=== PATIENT | female | born 1990 | race Caucasian/White ===

== ENCOUNTER 2021-11-16 15:20 | Emergency (ER) | payer SELFPAY ==
[2021-11-16 15:56] LABS: Bilirubin Negative (Negative); Blood, Urine Small (Negative); Clarity Cloudy (Clear); Glucose, Urine (Dipstick) Negative (Negative); Ketone, Urine Negative (Negative); Leukocyte Trace (Negative); Nitrite Negative (Negative); Protein, Urine (Dipstick) Negative (Neg-Trace); Urobilinogen 0.2 mg/dL (Less than 2); pH, Urine 5.5 (5.0-9.0)
[2021-11-16 16:02] LABS: Pregnancy Test - Urine (BHCG) Negative (Negative); Pregu Control Background? CLEAR/WHITE (CLR/WHITE); Pregu Control Bar Appear? YES (CONTROL BAR); Specific Gravity 1.033 (1.002-1.036)
[2021-11-16 16:03] LABS: Specific Gravity, Urine 1.033 (1.002-1.036)
[2021-11-16 16:15] LABS: Bacteria/HPF 2+ HPF (None Seen); RBC/HPF 0-3 HPF (0-3); WBC/HPF 0-3 HPF (0-3)
== END 2021-11-16 16:30 | disposition left against medical advice (07) ==
LOC: MADERS 15:20
DX: R10.30 Lower abdominal pain, unspecified (principal)
CPT/HCPCS: 81003; 81015; 81025; 99284